=== PATIENT | female | born 1975 | race Caucasian/White ===

== ENCOUNTER → 2017-08-11 | Outpatient (REF) | payer OTHER ==
[~2017-08-11] MED LIST: CIPR-250 PO; CITA20TA4 PO; DEPA1TAB3 PO; LEVO75TA4 PO; TYLE325T5 PO; VICO5TAB16 PO
== END ==
LOC: M LAB REF 16:39
PROVIDERS: ATTEND Internal Medicine Medical Oncology
DX: D50.9 Iron deficiency anemia, unspecified (principal)

== ENCOUNTER 2017-09-20 07:11 | Day surgery (SDC) | payer OTHER ==
[~2017-09-20] VITALS: Ht 160 cm; Wt 59.7 kg
[~2017-09-20 07:11] MED LIST changes: +IRON65TA PO; +NORT10CA2 PO; +OXYC1TAB23 PO; +PRAM0.123 PO; +TIZA4CAP3 PO
[2017-09-20] MEDS ORDERED: CEFAZOLIN SOD 1 GM in APPROPRIATE DILUENT 1 EA IV ONE (07:30)
[2017-09-20] MEDS ORDERED: LR 1,000 ML IV ONE (07:30)
[2017-09-20] MEDS ORDERED: LIDOCAINE 1% MDV 20ML VIAL SQ PRN (07:30)
[2017-09-20 07:48] LABS: CONTROL LINE UCG INT CTR LINE PRESENT
[2017-09-20] MEDS ORDERED: GLUCAGON FOR INJ 1 MG VIAL (J1610) As Ordered ONE (09:08)
[2017-09-20] MEDS ORDERED: BUPIVACAINE HCL 0.25% 30 ML VIAL As Ordered ONE (09:08)
[2017-09-20] MEDS ORDERED: CONRAY-60 60% 50ML VIAL (Q9961) As Ordered ONE (09:08)
[2017-09-20] MEDS ORDERED: MIDAZOLAM INJ 2 MG/2 ML VIAL (J2250) As Ordered ONE (09:09)
[2017-09-20] MEDS ORDERED: ROCURONIUM BROMIDE 50 MG/5 ML VIAL As Ordered ONE (09:09)
[2017-09-20] MEDS ORDERED: fentaNYL 100 MCG/2 ML INJECTION (J3010) As Ordered ONE ×2 (09:09→10:22)
[2017-09-20] MEDS ORDERED: PROPOFOL 200 MG/20 ML VIAL As Ordered ONE (09:09)
[2017-09-20] MEDS ORDERED: dexameTHASONE 4 MG/ML 1ML VIAL (J1100) As Ordered ONE (09:50)
[2017-09-20] MEDS ORDERED: ONDANSETRON 4MG/2ML VIAL (J2405) As Ordered ONE (10:09)
[2017-09-20] MEDS ORDERED: GLYCOPYRROLATE INJ 0.2 MG/ML 2 ML VIAL As Ordered ONE (10:09)
[2017-09-20] MEDS ORDERED: KETOROLAC 60 MG/2 ML VIAL (J1885) As Ordered ONE (10:17)
[2017-09-20] MEDS ORDERED: ONDANSETRON 4MG/2ML VIAL (J2405) IV PRN ×2 (11:00→11:15)
[2017-09-20] MEDS ORDERED: HYDROmorphone HCL 1 MG/ML SYRINGE (J1170) IV PRN (11:00)
[2017-09-20] MEDS ORDERED: fentaNYL 100 MCG/2 ML INJECTION (J3010) IV PRN (11:00)
[2017-09-20] MEDS ORDERED: LR 1,000 ML IV SCH ×2 (11:00)
[2017-09-20] MEDS ORDERED: NORCO, ANEXSIA 5/325MG TABLET (HYDROcodone/ACETAMINOPHEN) PO PRN (11:00)
--- NOTE | 2017-09-20 11:13 | RO ---
DATE OF PROCEDURE: 09/20/2017 PREOPERATIVE DIAGNOSIS: Symptomatic gallbladder dysfunction. POSTOPERATIVE DIAGNOSIS: Symptomatic gallbladder dysfunction. PROCEDURE: Laparoscopic cholecystectomy. SURGEON: Dr. Tay Adrian VISCERA WASHER: ANESTHESIA: General endotracheal anesthesia. ESTIMATED BLOOD LOSS (EBL): Minimal. FLUIDS: Crystalloid. BRIEF PROCEDURE SUMMARY: The patient was brought to the operating room and was given general anesthesia. After adequate anesthesia and preoperative antibiotics were given, the patient was prepped and draped in the usual sterile fashion. Next, a supraumbilical incision was made with skin knife. Blunt dissection was carried down to fascia. Fascia was grasped with Keny clamps, elevated and a Veress needle placed into the abdominal cavity and insufflated to 15 mm of pressure. A dilating 10 mm trocar was placed under direct visualization into the peritoneal cavity and an epigastric and two lateral trocars were placed. The gallbladder was grasped and retracted superiorly. It was quite distended and thus a hole in the gallbladder was created and suctioned out. After it was adequately suctioned to allow for the grasper to grab this, it was mobilized superiorly and some adhesions were taken down off the neck of the gallbladder that were stuck to the omentum with some electrocautery. The peritoneum on the neck of the gallbladder was taken down with hook cautery along the anterior aspect as well. The cystic duct node was appreciated and the cystic artery visualized. Once the peritoneum was taken down circumferentially in this area, a window behind the neck of the gallbladder was created laterally and then medially and an excellent window between the artery and the cystic duct was created. Then a critical view of safety was obtained. The cystic artery was clipped proximally and distally and transected. Then further dissection posterior to the neck of the gallbladder was performed revealing an even longer portion of the cystic duct well visualized. This was clipped proximally and distally and transected. The gallbladder was removed from the gallbladder bed with electrocautery. This was taken off the gallbladder bed and placed in an EndoCatch bag and then brought out through the umbilicus. #0 Vicryl was used close the fascia at the umbilicus after the right upper quadrant was copiously irrigated until clear. All incisions were closed with #4-0 Vicryl. Steri-Strips and a dry sterile dressing was applied. The patient was awakened, extubated and brought to the recovery room awake, alert and hemodynamic stable. Sponge and needle counts correct times two.
[2017-09-20] MEDS ORDERED: MORPHINE 2 MG/ML 1ML SYRINGE IV PRN (11:15)
[2017-09-20] MEDS: PERCOCET 5MG/325MG TAB PO PRN ×2 (11:36→12:07)
[2017-09-20 12:35] VITALS: BP 111/61
[2017-09-20] MEDS ORDERED: KETOROLAC 30 MG/ML VIAL (J1885) IV SCH (17:00)
== END 2017-09-20 12:45 | disposition home or self-care (01) ==
LOC: M SDC 07:11
PROVIDERS: ATTEND Surgery
DX: K80.10 Calculus of gallbladder with chronic cholecystitis without obstruction (principal); N80.9 Endometriosis, unspecified; K21.9 Gastro-esophageal reflux disease without esophagitis; F41.9 Anxiety disorder, unspecified; K64.9 Unspecified hemorrhoids; E87.6 Hypokalemia; E03.9 Hypothyroidism, unspecified; D50.9 Iron deficiency anemia, unspecified; R91.1 Solitary pulmonary nodule; C67.9 Malignant neoplasm of bladder, unspecified; G43.909 Migraine, unspecified, not intractable, without status migrainosus; G47.61 Periodic limb movement disorder; F32.9 Major depressive disorder, single episode, unspecified; M12.9 Arthropathy, unspecified; Z88.8 Allergy status to other drugs, medicaments and biological substances; Z79.899 Other long term (current) drug therapy; Z86.711 Personal history of pulmonary embolism; Z87.442 Personal history of urinary calculi; Z98.84 Bariatric surgery status; Z98.1 Arthrodesis status
CPT/HCPCS: 47562; 84703; 88304; J0690; J1100; J1885; J2250; J2405; J3010

== ENCOUNTER → 2019-05-31 | Outpatient (REF) | payer OTHER ==
[~2019-05-31] MED LIST changes: -CITA20TA4 PO; +CITA20TA6 PO; -PRAM0.123 PO; +PRAM0.126 PO; +TIZA4CAP PO; -TIZA4CAP3 PO; -VICO5TAB16 PO; +VICO5TAB17 PO
[2019-05-31 12:40] LABS: BASO % 0.8 % (0.0-1.0); EOS # 0.4 10^3/uL (0.0-0.50); EOS % 8.1 % (0.0-3.0); HEMATOCRIT 36.9 % (36.0-47.0); HEMOGLOBIN 12.1 g/dl (12.0-15.5); LYMPH # 1.3 10^3/uL (1.5-4.5); LYMPH % 27.7 % (24.0-44.0); MEAN CORPUSCULAR HEMOGLOBIN 31.8 pg (27.0-33.0); MEAN CORPUSCULAR HGB CONC 32.8 g/dl (32.0-36.5); MEAN CORPUSCULAR VOLUME 96.9 fl (80.0-96.0); MONO # 0.5 10^3/uL (0.0-0.8); MONO % 11.2 % (0.0-5.0); NEUTROPHILS # 2.5 10^3/uL (1.8-7.7); PLATELET COUNT, AUTOMATED 265 10^3/uL (150-450); RED BLOOD COUNT 3.81 10^6/uL (4.00-5.40); WHITE BLOOD COUNT 4.8 10^3/uL (4.0-10.0)
[2019-05-31 12:47] LABS: C REACTIVE PROTEIN QUANTITATIV < 0.30 MG/DL (0.00-0.30); CPK CREATINE PHOSPHOKINASE 38 U/L (26-192); RHEUMATOID FACTOR QUANT < 10.0 IU/ML (<15.0)
[2019-05-31 13:22] LABS: ERYTHROCYTE SEDIMENTATION RATE 8 mm/hr (0-20)
[2019-06-01 11:44] LABS: HIV 1&2 SCREEN CENTAUR NEGATIVE (NEGATIVE)
[2019-06-05 00:06] LABS: ANA (HEP2) Negative (.); CYCLIC CITRULLINATED PEPTIDE 2 units (0-19); EBV VIRAL CAPSID AG IgM <36.0 U/mL (0.0-35.9)
== END ==
LOC: M SFHCPLAZ 09:17
PROVIDERS: ATTEND Internal Medicine Infectious Disease
DX: R53.82 Chronic fatigue, unspecified (principal); M25.50 Pain in unspecified joint

== ENCOUNTER 2020-12-26 13:59 | Emergency (ER) | payer OTHER ==
[~2020-12-26] VITALS: Ht 160 cm; Wt 72.7 kg
[2020-12-26] MEDS ORDERED: LIDOCAINE 2% 5ML JELLY UROJET TOP ONE (14:35)
[2020-12-26 14:52] LABS: BASO # 0.1 10^3/uL (0.0-0.2); EOS # 0.3 10^3/uL (0.0-0.5); EOS % 4.8 % (0.0-3.0); HEMATOCRIT 38.8 % (36.0-47.0); HEMOGLOBIN 12.7 g/dl (12.0-15.5); LYMPH # 2.2 10^3/uL (1.5-5.0); LYMPH % 30.5 % (24.0-44.0); MEAN CORPUSCULAR HEMOGLOBIN 28.8 pg (27.0-33.0); MEAN CORPUSCULAR HGB CONC 32.7 g/dl (32.0-36.5); MONO # 0.7 10^3/uL (0.0-0.8); MONO % 9.5 % (2.0-8.0); NEUTROPHILS # 3.8 10^3/uL (1.5-8.5); NEUTROPHILS % 54.1 % (36.0-66.0); PLATELET COUNT, AUTOMATED 383 10^3/uL (150-450); RED BLOOD COUNT 4.41 10^6/uL (4.00-5.40)
--- NOTE | 2020-12-26 14:56 | REP ---
INDICATION: CVA - Nursing interventions must not delay CT. COMPARISON: None. TECHNIQUE: Helical scanning is acquired. 5 mm axial images were reformatted. Coronal MPR images were generated. FINDINGS: Bone window settings demonstrate an intact bony calvarium. There is no evidence of skull fracture or incidental bony calvarial lesion. The visualized paranasal sinuses appear clear. No intraorbital abnormality is seen. On soft tissue window setting images; the lateral, third, and fourth ventricles are normal in size and position. Yee-white differentiation pattern is normal above and below the tentorium. There are is no evidence of intracranial hemorrhage. No mass, edema, infarction, or midline shift is seen. No extra-axial fluid collection is appreciated. IMPRESSION: Negative noncontrast head CT. <Electronically signed by Finn Galvez > 12/26/20 [id number]
--- NOTE | 2020-12-26 14:58 | REP ---
INDICATION: falls COMPARISON: None. TECHNIQUE: Axial noncontrast images from the skull base to the thoracic inlet with coronal and sagittal re-formations This CT examination was performed using the following dose reduction techniques: Automated exposure control, adjustment of mA and/or kv according to the patient's size, and use of iterative reconstruction technique. FINDINGS: Patient is noted to be status post anterior fixation at C4-C7. Alignment and lordosis maintained. No acute fracture/compression injury or subluxation. Underlying chronic degenerative changes involving C4-C7 are noted. Neural foramen appear relatively patent. Spinal canal appears patent. IMPRESSION: No evidence for acute pathology or trauma/injury. <Electronically signed by Oseas Diaz > 12/26/20 [id number]
[2020-12-26 15:02] LABS: INR 1.09; PARTIAL THROMBOPLASTIN TIME 30.5 SECONDS (24.2-38.5); PROTHROMBIN TIME 14.3 SECONDS (12.5-14.3)
[2020-12-26 15:20] LABS: HCG, SERUM QUALITATIVE NEGATIVE (NEGATIVE)
[2020-12-26 15:23] LABS: ALBUMIN 3.6 GM/DL (3.2-5.2); ALT/SGPT 25 U/L (12-78); BILIRUBIN,DIRECT < 0.1 MG/DL (0.0-0.2); BILIRUBIN,TOTAL 0.2 MG/DL (0.2-1.0); BLOOD UREA NITROGEN 13 MG/DL (7-18); CALCIUM LEVEL 9.1 MG/DL (8.5-10.1); CARBON DIOXIDE LEVEL 22 MEQ/L (21-32); CHLORIDE LEVEL 109 MEQ/L (98-107); CK-MB VALUE MASS < 1.0 NG/ML (<3.6); CPK CREATINE PHOSPHOKINASE 112 U/L (26-192); CREATININE FOR GFR 0.66 MG/DL (0.55-1.30); GLOMERULAR FILTRATION RATE > 60.0 (>58); GLUCOSE, FASTING 81 MG/DL (70-100); MAGNESIUM LEVEL 2.4 MG/DL (1.8-2.4); MB/CK RELATIVE INDEX 0.89 (< OR =4); POTASSIUM SERUM 3.9 MEQ/L (3.5-5.1); SODIUM LEVEL 139 MEQ/L (136-145); TOTAL PROTEIN 7.5 GM/DL (6.4-8.2); TROPONIN I < 0.02 NG/ML (< 0.10)
--- NOTE | 2020-12-26 15:51 | REP ---
INDICATION: CVA COMPARISON: None. TECHNIQUE: Portable AP view of the chest FINDINGS: The mediastinum and cardiac silhouette are within normal limits for portable technique. The lung zarate are clear without acute consolidation, effusion, or pneumothorax. Skeletal structures are intact. Evidence for prior cervical fixation. IMPRESSION: No acute cardiopulmonary process appreciated. <Electronically signed by Oseas Diaz > 12/26/20 1205
[2020-12-26] MEDS ORDERED: GABA-282 PO ×2 (16:09→19:25)
[2020-12-26] MEDS ORDERED: BUSP10TA PO (16:09)
[2020-12-26] MEDS ORDERED: EUTH88TA PO (16:09)
[2020-12-26] MEDS ORDERED: ELIQ5TAB PO (16:09)
[2020-12-26] MEDS ORDERED: FLUO20CA22 PO (16:09)
[2020-12-26] MEDS ORDERED: NORT25CA2 PO (16:09)
[2020-12-26] MEDS ORDERED: MIRA0.12 PO (16:09)
[2020-12-26] MEDS ORDERED: PLEC3TAB PO (16:09)
[2020-12-26] MEDS ORDERED: BUTA-198 PO (16:09)
[2020-12-26] MEDS ORDERED: D 50CAP2 PO (16:09)
[2020-12-26] MEDS ORDERED: ATIV1TAB10 PO (16:09)
[2020-12-26] MEDS ORDERED: NORE5TAB PO (16:09)
[2020-12-26] MEDS ORDERED: PROM12.56 PO (16:09)
[2020-12-26] MEDS ORDERED: TAMS1CAP17 PO (16:09)
[2020-12-26 16:18] LABS: RSV AMPLIFICATION NEGATIVE (NEGATIVE)
[2020-12-26] MEDS ORDERED: cefTRIAXone SOD 1 GM in D5W MINI-BAG PLUS 50 ML IV ONE (17:00)
[2020-12-26] MEDS ORDERED: ACETAMINOPHEN TAB 650MG DOSE (2X325MG) PO ONE (17:30)
[2020-12-26] MEDS ORDERED: NS 1,000 ML IV ONE (17:30)
--- NOTE | 2020-12-26 18:52 | ECGEPIP ---
[facility] - ED Test Date: 2020-12-26 Pat Name: MARY MOREIRA Department: Room: - Gender: Female Engagement Director: : 1975 Requested By: Laura Ignacio Order Number: [id number] Reading MD: Katherine Ellis Measurements Intervals [place] Rate: 98 P: 59 [place]: 122 QRS: 52 QRSD: 66 T: 40 QT: 342 QTc: 436 Interpretive Statements Normal sinus rhythm NSTTW abnormalities No prior Electronically Signed on 12-26-2020 18:52:26 EST by Katherine Ellis
--- NOTE | 2020-12-26 21:34 | REPVR ---
PROCEDURE INFORMATION: Exam: MR Head Without Contrast Exam date and time: 12/26/2020 8:26 PM Age: 45 years old Clinical indication: Walking, difficulty and weakness, extremity; Left; Additional info: Falls, increase wkness left, per neuro TECHNIQUE: Imaging protocol: MR of the head without contrast. COMPARISON: CT Head without contrast 12/26/2020 2:42 PM FINDINGS: Brain: Normal. No acute infarct. No hemorrhage. No significant white matter disease. No edema. Cerebral ventricles: Normal. No ventriculomegaly. Bones/joints: Unremarkable. Paranasal sinuses: Normal as visualized. No acute sinusitis. Mastoid air cells: Normal as visualized. No mastoid effusion. Orbital cavity: Unremarkable. Soft tissues: Unremarkable. IMPRESSION: No acute findings. Electronically signed by: Jamie Kilgore On 12/26/2020 21:34:46 PM
--- NOTE | 2020-12-26 21:46 | REPVR ---
PROCEDURE INFORMATION: Exam: MR Cervical Spine Without Contrast Exam date and time: 12/26/2020 8:26 PM Age: 45 years old Clinical indication: Weakness; Prior surgery; Surgery date: 6+ months; Surgery type: Fusion; Additional info: Falls, increase wkness left, per neuro TECHNIQUE: Imaging protocol: Multiplanar magnetic resonance images of the cervical spine without contrast. COMPARISON: CT Spine,cervical w/o contrast 12/26/2020 2:46 PM FINDINGS: Vertebrae: There are screw and plate devices anteriorly from C4 through C7 and peer inked tacked. The facet joints appear in alignment. Spinal cord: The cervical cord appears normal in size and there is no large area of abnormal signal intensity. There is a small round area of bright signal intensity within the cord on the left at the level of C6 and this could represent a small area of previous ischemic change or demyelination. T1-T2: There is a small posterior disc protrusion T1-T2. Vertebral arteries: The left vertebral artery is dominant and there is a signal void. The right vertebral artery is very small and difficult to identify. Other findings: There is no evidence of significant central spinal canal stenosis. IMPRESSION: 2 mm round area of bright signal intensity within the left side of the cervical cord at the level of C6. This could represent a tiny area of previous ischemic change or demyelination. Electronically signed by: Jamie Kilgore On 12/26/2020 21:47:13 PM
--- NOTE | 2020-12-26 21:57 | REPVR ---
PROCEDURE INFORMATION: Exam: MR Thoracic Spine Without Contrast Exam date and time: 12/26/2020 2:44 PM Age: 45 years old Clinical indication: Weakness; Additional info: Falls, increase wkness left, per neuro TECHNIQUE: Imaging protocol: Multiplanar magnetic resonance images of the thoracic spine without intravenous contrast. COMPARISON: No relevant prior studies available. FINDINGS: Spinal cord: The thoracic cord is normal in size. There is moderate kyphosis of the thoracic spine. There is a 2 mm oval area of bright signal intensity within the thoracic cord at T10 which could be an area of ischemic change or an area of demyelination. Linear areas of very signal intensity within the thoracic canal is probably pulsation artifact. The thoracic MRI should be repeated with IV contrast to exclude any possibility of cord pathology. Other bones/joints: The marrow space has a normal signal intensity. IMPRESSION: 2 mm area of bright signal intensity within the thoracic cord at T10 could represent a tiny area of ischemic change or an area demyelination. Suggest correlation with a MR scan of the cervical and thoracic cord with contrast for clarification. Linear areas varying density within the spinal fluid posterior to the cord is probably pulsation artifact, but contrast would be helpful to clear this area as well. Electronically signed by: Jamie Kilgore On 12/26/2020 21:57:46 PM
[2020-12-26 23:45] VITALS: BP 118/69
== END 2020-12-26 23:51 | disposition short-term general hospital (02) ==
LOC: EDBD 13:59 → M ED 13:59
DX: R93.89 Abnormal findings on diagnostic imaging of other specified body structures (principal); R26.2 Difficulty in walking, not elsewhere classified; R53.82 Chronic fatigue, unspecified; R47.81 Slurred speech; Z91.81 History of falling; Z86.718 Personal history of other venous thrombosis and embolism; Z86.711 Personal history of pulmonary embolism; M79.7 Fibromyalgia; R51.9 Headache, unspecified; Z98.84 Bariatric surgery status; M50.90 Cervical disc disorder, unspecified, unspecified cervical region; E03.9 Hypothyroidism, unspecified; F41.9 Anxiety disorder, unspecified; F32.9 Major depressive disorder, single episode, unspecified; Z87.891 Personal history of nicotine dependence; Z98.1 Arthrodesis status; Z79.899 Other long term (current) drug therapy; Z79.01 Long term (current) use of anticoagulants; Z88.2 Allergy status to sulfonamides; Z88.8 Allergy status to other drugs, medicaments and biological substances
CPT/HCPCS: 51701; 70450; 70551; 71045; 72125; 72141; 72146; 80048; 80076; 81001; 82550; 82553; 83605; 83735; 84703; 85025; 85610; 85730; 86850; 86900; 86901; 87040; 87088; 87186; 87631; 93005; 93041; 94760; 96361; 96365; 99285; J0696